=== PATIENT | male | born 1980 | race Caucasian/White ===

== ENCOUNTER → 2020-12-25 12:01 | Outpatient (CLI) | payer OTHER, SELFPAY ==
[2020-12-25 12:55] LABS: Add Manual Diff / Slide Review NO; Basophils Absolute Auto 100 /uL (0-100); Basophils Percent Auto 0.8 % (0-2); Eosinophils Absolute Auto 300 /uL (0-450); Eosinophils Percent Auto 2.9 % (2-4); Hematocrit 43.4 % (41-53); Hemoglobin 14.7 g/dL (13.5-17.5); Lymphocytes Absolute Auto 3200 /uL (1100-4500); Lymphocytes Percent Auto 31.5 % (25-40); Mean Corpuscular Hemoglobin 29.6 PG (26-34); Mean Corpuscular Volume 87.3 fL (80-100); Monocytes Absolute Auto 500 /uL (0-900); Monocytes Percent Auto 5.3 % (3-14); Neutrophils Absolute Auto 6100 /uL (1500-7000); Neutrophils Percent Auto 59.5 % (50-75); Platelet Count 351 X10^3/uL (150-400); Red Blood Cell Count 4.97 X10^6/uL (4.5-5.9); Red Cell Distribution Width 13.5 % (11.6-14.8); White Blood Cell Count 10.3 X10^3/uL (4.5-11.0)
[2020-12-25 13:25] LABS: Alanine Aminotransferase 65 IU/L (<50); Albumin 4.8 g/dL (3.5-5.0); Albumin Globulin Ratio 1.5 (1.0-2.8); Alkaline Phosphatase 59 U/L (38-126); Aspartate Aminotransferase 48 IU/L (17-59); BUN Creatinine Ratio 13.4 (6-22); Bilirubin Total 0.7 mg/dL (0.2-1.3); Blood Urea Nitrogen 13 mg/dL (9-20); C-Reactive Protein Quant < 0.5 mg/dL (<1.0); Calcium 10.3 mg/dL (8.4-10.2); Carbon Dioxide 30 mmol/L (22-32); Chloride 102 mmol/L (98-107); Cholesterol 170 mg/dL (140-199); Estimated Glomerular Filt Rate > 60.0 mL/min (>60); Globulin 3.2 g/dL (1.7-4.1); Glucose 83 mg/dL (70-100); HDL Cholesterol 59 mg/dL (40-60); HEMOLYSIS < 15 (0-50); LDL Cholesterol Calculated 96 mg/dL (<100); Potassium 4.3 mmol/L (3.4-5.1); Sodium 140 mmol/L (137-145); Triglycerides 75 mg/dL (35-150)
[2020-12-25 14:15] LABS: Erythrocyte Sedimentation Rate 1 MM/HR (0-15)
== END ==
PROVIDERS: Family Provider Family Medicine; PCP Internal Medicine; Referring Provider Internal Medicine; Visit Provider Internal Medicine
DX: L60.4 Beau's lines (principal); Z13.1 Encounter for screening for diabetes mellitus; Z13.220 Encounter for screening for lipoid disorders; Z13.6 Encounter for screening for cardiovascular disorders
CPT/HCPCS: 36415; 80053; 80061; 85025; 85651; 86140

== ENCOUNTER → 2021-02-05 12:06 | Outpatient (CLI) | payer OTHER, SELFPAY ==
[2021-02-05 12:45] LABS: INR 1.3 (0.9-1.3); Prothrombin Time 14.3 SECONDS (10.1-12.7)
[2021-02-05 13:16] LABS: HEMOLYSIS < 15 (0-50)
[2021-02-05 13:21] LABS: Iron 96 ug/dL (49-181)
[2021-02-05 13:24] LABS: Alanine Aminotransferase 35 IU/L (<50); Albumin 4.6 g/dL (3.5-5.0); Albumin Globulin Ratio 1.4 (1.0-2.8); Alkaline Phosphatase 61 U/L (38-126); Aspartate Aminotransferase 33 IU/L (17-59); Bilirubin Total 0.5 mg/dL (0.2-1.3); Bilirubin Unconjugated 0.5 mg/dL (0.0-1.1); Creatine Kinase 134 U/L (55-170); Globulin 3.2 g/dL (1.7-4.1); HEMOLYSIS < 15 (0-50); Total Protein 7.8 g/dL (6.3-8.2)
[2021-02-05 13:31] LABS: Percent Iron Saturation 28 % (20-50); Total Iron Binding Capacity 340 ug/dL (261-462); Transferrin 264 mg/dL (206-381)
[2021-02-05 16:48] LABS: TSH w/ Reflex to FT4 2.46 uIU/mL (0.47-4.68)
[2021-02-06 05:13] LABS: Ceruloplasmin 21.7 mg/dL (16.0-31.0); Hepatitis B Surf Ab Qualitativ Non Reactive (.)
[2021-02-07 15:45] LABS: ANA Screen, IFA Negative (.)
[2021-02-08 12:43] LABS: Smooth Muscle Antibody 12 Units (0-19)
[2021-02-09 04:35] LABS: Deamidated Gliadin IgA 3 units (0-19); Deamidated Gliadin IgG 1 units (0-19); IGA 257 mg/dL (90-386); t-Transglutaminase IgA <2 U/mL (0-3)
[2021-02-09 19:49] LABS: Hepatitis B Surface Antigen NEGATIVE s/c (NEGATIVE)
[2021-02-09 20:13] LABS: Hep C Virus Ab w/Reflex Quant NEGATIVE s/c (NEGATIVE)
== END ==
PROVIDERS: Family Provider Family Medicine; PCP Internal Medicine; Referring Provider Internal Medicine; Visit Provider Internal Medicine
DX: R74.01 Elevation of levels of liver transaminase levels (principal)
CPT/HCPCS: 36415; 80076; 82390; 82550; 82784; 83516; 83540; 83550; 84443; 85610; 86038; 86255; 86706; 86803; 87340